=== PATIENT | female | born 1990 | race Hispanic/Latino ===

== ENCOUNTER 2024-03-08 09:57 | Inpatient (IN) | payer SELFPAY ==
[2024-03-07 11:25] LABS: Hematocrit 34.7 % (34.9-44.5); Hemoglobin 11.3 g/dL (12.0-15.5); Platelet Count 324 10x3/uL (150-450)
[2024-03-07 12:00] LABS: Syphilis Antibody Nonreactive (Nonreactive); Syphilis Antibody Index 0.06 S/CO (<1.00 Non-Reactive)
[2024-03-07 12:01] LABS: HBsAg Index 0.24 S/CO (0-0.99); Hep B Surf Ag Non-Reactive S/CO (NonReactive)
[2024-03-08] MEDS ORDERED: Misoprostol 200 MCG TAB PR PRN (10:32)
[2024-03-08] MEDS ORDERED: hydrALAZINE 20 MG/ML VIAL SLOW IVP PRN ×2 (10:32→13:43)
[2024-03-08] MEDS ORDERED: Promethazine HCl 25 MG/ML VIAL IM PRN ×3 (10:32→16:11)
[2024-03-08] MEDS ORDERED: Tranexamic Acid 1,000 MG/10 ML VIAL IVP PRN (10:32)
[2024-03-08] MEDS ORDERED: Carboprost 250 MCG/ML AMP IM PRN (10:32)
[2024-03-08] MEDS ORDERED: Bicitra 30 ML UDCUP PO PRN (10:32)
[2024-03-08] MEDS ORDERED: Ondansetron PF 4 MG/2 ML Vial IVP PRN ×4 (10:32→16:11)
[2024-03-08] MEDS ORDERED: Methylergonovine 0.2 MG/ML VIAL IM PRN (10:32)
[2024-03-08] MEDS ORDERED: Diphenoxylate HCl/Atropine Tablet PO PRN ×2 (10:32)
[2024-03-08] MEDS ORDERED: Oxytocin 30 units/NS 500 ML 500 ML IV SCH ×2 (10:45→13:45)
[2024-03-08] MEDS: Lactated Ringer's 1,000 ML IV SCH (10:46)
[2024-03-08 11:17] VITALS: BMI 34.3
[2024-03-08] MEDS: Famotidine/PF 20 mg/2ml Vial SLOW IVP PRN (11:46)
[2024-03-08] MEDS: CEFAZOLIN 2 GM in Sodium Chloride 0.9% 100 ML IVPB SCH (11:47)
[2024-03-08] MEDS: Phytonadione Neonatal 1 MG/0.5 ML AMP ONE (12:02)
[2024-03-08] MEDS: Erythromycin Base 0.5% Oint 1 GM TUBE ONE (12:02)
[2024-03-08] MEDS: Hepatitis B Vaccine 10 MCG/0.5 ML SYR ONE (12:02)
[2024-03-08] MEDS ORDERED: Acetaminophen 325 MG TAB PO PRN (13:43)
[2024-03-08] MEDS ORDERED: Simethicone Chewable 80 MG TAB PO PRN (13:43)
[2024-03-08] MEDS ORDERED: Bisacodyl 10 MG SUPP PR PRN (13:43)
[2024-03-08] MEDS ORDERED: Ibuprofen 800 MG TAB PO SCH (14:00)
[2024-03-08] MEDS ORDERED: Naloxone HCl 0.4 mg/ml Vial IV PRN (16:11)
[2024-03-08] MEDS ORDERED: diphenhydrAMINE 50 MG/ML VIAL IVP PRN (16:11)
[2024-03-08] MEDS ORDERED: Naloxone HCl 0.4 mg/ml Vial IVP PRN ×2 (16:11)
[2024-03-08] MEDS ORDERED: Moisturizing Cream (Eucerin) 113 GM JAR TOP PRN (16:11)
[2024-03-08] MEDS ORDERED: Meperidine HCl/PF 25 MG (1 mL) VIAL SLOW IVP PRN (16:11)
[2024-03-08] MEDS ORDERED: fentaNYL 50 mcg/mL 1 mL Vial SLOW IVP PRN (16:11)
[2024-03-08] MEDS ORDERED: Communication Order-Pharmacy FS SCH (16:15)
[2024-03-08] MEDS: Morphine PF 10 MG/10 ML VIAL ONE (16:34)
[2024-03-08] MEDS: Promethazine HCl 25 MG/ML VIAL ONE (16:34)
[2024-03-08] MEDS: Measles/Mumps/Rubella 10 MCG/0.5 ML VIAL SC ONE (16:34)
[2024-03-08] MEDS: Sterile Water 10 ML ONE (16:34)
[2024-03-08] MEDS: Boostrix 0.5 ML (Tdap) VIAL (>/=7 yrs of age) IM ONE (16:34)
[2024-03-08] MEDS: Ketorolac Tromethamine 30 MG (1 mL) VIAL ONE (16:34)
[2024-03-08] MEDS: Phenylephrine 10 MG/ML VIAL ONE (16:34)
[2024-03-08] MEDS: Bupivacaine 0.75% W/DEXTROSE 8.25% 2 ML AMP ONE (16:34)
[2024-03-08] MEDS: Dexamethasone 10 MG/ML VIAL ONE (16:34)
[2024-03-08] MEDS: Ondansetron PF 4 MG/2 ML Vial ONE (16:34)
[2024-03-08] MEDS: Phenylephrine 40 MG/NS 250 ML 500 ML ONE (16:34)
[2024-03-08] MEDS: Dexmedetomidine 200 MCG/2 ML VIAL ONE (16:34)
[2024-03-08] MEDS: Oxytocin 10 UNITS/ML VIAL ONE (16:34)
[2024-03-08] MEDS: Ibuprofen 800 MG TAB PO SCH (16:35)
[2024-03-08] MEDS: Docusate 100 MG CAP PO SCH (19:55)
[2024-03-08] MEDS: Ketorolac Tromethamine 30 MG (1 mL) VIAL IVP SCH (19:55)
[2024-03-09] MEDS: Ketorolac Tromethamine 30 MG (1 mL) VIAL IVP SCH (02:28)
[2024-03-09 03:53] LABS: Hematocrit 26.7 % (34.9-44.5); Mean Corpuscular HGB CONC 33.7 g/dL (32.0-36.0); Mean Corpuscular Hemoglobin 27.4 pg (27.0-33.0); Mean Corpuscular Volume 81.4 fL (81.6-98.3); Mean Platelet Volume 11.4 fL (7.4-10.4); Platelet Count 284 10x3/uL (150-450); RBC Distribution Width 13.6 % (11.5-14.5); Red Blood Cell (RBC) Count 3.28 10x6/uL (3.90-5.03); White Blood Cell (WBC) Count 13.52 10x3/uL (3.5-10.5)
[2024-03-09] MEDS: Ferrous Sulfate 325 MG TAB PO SCH (08:07)
[2024-03-09] MEDS: HYDROcodone/Acetaminophen 5/325 mg Tablet PO PRN ×2 (12:05→17:11)
[2024-03-09] MEDS: Ibuprofen 800 MG TAB PO SCH (21:15)
[2024-03-10] MEDS: Measles/Mumps/Rubella 10 MCG/0.5 ML VIAL SC ONE (10:04)
[2024-03-11 08:29] VITALS: BP 101/66; TEMP 98.5
== END 2024-03-11 12:45 | disposition home or self-care (01) | DRG 787 ==
LOC: CSHLD 09:57 → CSHPED 18:30
PROVIDERS: ADMIT Family Medicine; ATTEND Family Medicine
PROC: 10D00Z1 Extraction of Products of Conception, Low, Open Approach (ICD-10-PCS; principal; 2024-03-08)
DX: O34.211 Maternal care for low transverse scar from previous cesarean delivery (principal); O99.12 Other diseases of the blood and blood-forming organs and certain disorders involving the immune mechanism complicating childbirth; O99.02 Anemia complicating childbirth; D50.9 Iron deficiency anemia, unspecified; Z79.899 Other long term (current) drug therapy; D56.3 Thalassemia minor; D69.6 Thrombocytopenia, unspecified; E53.8 Deficiency of other specified B group vitamins
CPT/HCPCS: 36415; 51702; 85014; 85018; 85027; 85049; 86780; 86850; 86900; 86901; 87340; 90707; J1100; J1885; J2274; J2371; J2405; J2550; J2590; J3490; J7120